=== PATIENT | female | born 1990 | race Caucasian/White ===

== ENCOUNTER 2018-09-16 01:55 | Emergency (ER) | payer OTHER ==
[~2018-09-16] VITALS: Ht 170.2 cm; Wt 59.0 kg
[2018-09-16] MEDS ORDERED: PEPCID AC20 MG PO (02:43)
[2018-09-16] MEDS ORDERED: PROMETHAZINE HC25 MG PO (02:43)
== END 2018-09-16 03:15 | disposition home or self-care (01) ==
LOC: ER 01:55
DX: K30 Functional dyspepsia (principal)